=== PATIENT | female | born 1965 | race Asian ===

== ENCOUNTER → 2016-07-20 | Day surgery (SDC) | payer BC ==
[~2016-07-20] MED LIST: BIRTH CONTROL PILL PO; OTC ALLERGY MED; PERCOCET5/325 PO
--- NOTE | ~2016-07-20 | OR ---
Unit #: [id number] #: [id number] Patient: HOLLY SIERRA [id number] [address] [place], [place] [address] [id number] MR#: [id number] NAME: HOLLY SIERRA ROOM: Date of Procedure: 07/20/2016 Admission Date: 07/20/2016 Surgeon: Titi Tyson M.D. : 1965 Attending Physician: Titi Tyson M.D. Referring Physician: Titi Tyson M.D. Primary Care Physician: Bredna Sierra M.D. OPERATIVE REPORT PREOPERATIVE DIAGNOSIS Colorectal cancer screening in an average-risk patient. PROCEDURES PERFORMED 1. Colonoscopy and polypectomy. 2. Colonoscopy and submucosal injection. POSTOPERATIVE DIAGNOSES 1. The patient had a 2.5 cm sessile flat adenoma in the area of the hepatic flexure. The latter was removed using snare cautery polypectomy after submucosal saline injection, polyp bed elevation. It was removed in toto and sent for histology. 2. Rest of the examination up to cecum and terminal ileum was normal. The quality of the prep was excellent. RECOMMENDATIONS 1. Follow up the results of polyp histology. 2. Repeat colonoscopy in 5 years. SEDATION USED MAC. DESCRIPTION OF PROCEDURE Following detailed explanation of the potential risks and complications of a colonoscopy, namely perforation, bleeding, and complication related to sedation, the patient was brought to GI lab and laid in the left lateral decubitus position. A digital rectal examination was performed, which was normal. Lubricated tip of the Olympus video colonoscope was inserted through the anus and advanced under direct vision. The scope was advanced past rectosigmoid into descending colon. No diverticula were noted in this area. The scope tip was then navigated all the way up to cecum with visualization of the ileocecal valve and the appendiceal orifice. Preparation was excellent with good visualization and photodocumentation was obtained. Last several inches of the terminal ileum were also visualized after intubation of the ileocecal valve and appeared normal. Successive segments of the colonic mucosa were examined upon withdrawal and appeared unremarkable except for a single sessile polyp about 2.5 cm in size in the area of the hepatic flexure. This was true flat adenoma. It was removed after snare cautery polypectomy, submucosal saline injection, and polyp bed elevation. The polyp was removed in toto and sent for histology. Excellent hemostasis was achieved and photodocumentation was obtained. No additional polyps were noted. The Unit #: [id number] #: [id number] Patient: HOLLY SIERRA patient did not have any diverticulosis nor any hemorrhoids. The scope was then withdrawn and the patient returned to the recovery area. The patient tolerated the procedure without any postprocedure complications. Dictated by... Stacie Reyes/raad TD: 07/20/2016 22:07 JOB #: [id number] OPERATIVE REPORT X Titi Tyson MD X PROCEDURE OPERATIVE NOTE
== END | disposition home or self-care (01) ==
LOC: COPS 12:14
DX: Z12.11 Encounter for screening for malignant neoplasm of colon (principal); D12.3 Benign neoplasm of transverse colon; Z79.899 Other long term (current) drug therapy; Z98.890 Other specified postprocedural states
CPT/HCPCS: 84703; 88305; J2250; J3010